=== PATIENT | male | born 1975 | race Caucasian/White ===

== ENCOUNTER 2024-01-17 20:12 | Emergency (ER) | payer OTHER | END 2024-01-17 22:08 | LOC: ERS 20:12 → EEVIPCON 20:12 → ERS 22:08 | DX: S63.610A Unspecified sprain of right index finger, initial encounter (principal); F17.210 Nicotine dependence, cigarettes, uncomplicated; X50.1XXA Overexertion from prolonged static or awkward postures, initial encounter ==